=== PATIENT | female | born 1940 | race Caucasian/White ===

== ENCOUNTER 2016-09-17 19:19 | Outpatient (CLI) | payer OTHER | END 2016-09-17 19:20 | disposition critical access hospital (66) | LOC: EMS 19:19 | PROVIDERS: ATTEND Surgery | DX: M25.511 Pain in right shoulder (principal); W01.198A Fall on same level from slipping, tripping and stumbling with subsequent striking against other object, initial encounter; Y93.K1 Activity, walking an animal; Y92.017 Garden or yard in single-family (private) house as the place of occurrence of the external cause | CPT/HCPCS: A0425; A0427 ==

== ENCOUNTER 2016-09-17 19:56 | Emergency (ER) | payer OTHER ==
[2016-09-17] MEDS ORDERED: PROMETHAZINE INJ 12.5 MG in SODIUM CHLORIDE 0.9% 50 ML IV STA (20:16)
[2016-09-17] MEDS ORDERED: PROMETHAZINE 25 MG/1 ML VIAL ONE (20:18)
--- NOTE | 2016-09-17 20:31 | ED Physician Documentation ---
PD HPI UPPER EXT INJURY - Stated complaint Stated Complaint: FALL/SHOULDER INJ - Chief complaint Chief Complaint: Ext Problem - History obtained from History obtained from: Patient, EMS - History of Present Illness Location: Right, Shoulder Type of injury: Fall Where injury occurred: Home Timing - onset: How many hours ago (3) Timing - duration: Hours (2) Timing - details: Abrupt onset Pain level max: 9 Pain level now: 9 Improved by: Rest Worsened by: Moving Associated symptoms: No: Weakness, Numbness, Tingling, Swelling Contributing factors: No: Anticoagulated, Prior ortho surgery Similar symptoms before: Has not had sx before Recently seen: Not recently seen - Additonal information Additional information: Patient is a 76-year-old female who presents to the emergency department after falling down at home and injuring her right shoulder. Received 150 mcg of fentanyl with EMS. This caused her to be nauseated and vomit. Still feeling nauseated. Patient did not strike her head. Has no neck pain. Review of Systems Ten Systems: 10 systems reviewed and negative Constitutional: denies: Fever, Chills Eyes: denies: Decreased vision Ears: denies: Ear pain Nose: denies: Rhinorrhea / runny nose, Congestion Cardiac: denies: Chest pain / pressure Respiratory: denies: Cough GI: reports: Nausea, Vomiting. denies: Abdominal Pain, Diarrhea : denies: Dysuria, Frequency, Hesitancy Skin: denies: Rash Musculoskeletal: denies: Neck pain Neurologic: denies: Focal weakness, Numbness, Confused, Altered mental status, Headache PD PAST MEDICAL HISTORY - Past Medical History Past Medical History: Yes Cardiovascular: Congestive heart failure Respiratory: None Neuro: None Endocrine/Autoimmune: Other GI: None VENEER CLIPPER: None : None HEENT: None Psych: None Musculoskeletal: None Derm: None Other Past Medical History: hypothyroid - Past Surgical History Past Surgical History: Yes Ortho: Hip replacement - Present Medications Home Medications: Ambulatory Orders Medication Instructions Recorded Confirmed Doxycycline Monohydrate 100 mg PO DAILY 09/17/16 09/17/16 Furosemide 20 mg PO DAILY 09/17/16 09/17/16 Hydrocodone/Acetaminophen 1 - 2 each PO Q6H PRN #14 tablet 09/17/16 [Hydrocodon-Acetaminophen 5-325] Levothyroxine [Synthroid] 88 mcg PO QDAC 09/17/16 09/17/16 Metoprolol Tartrate 50 mg PO DAILY 09/17/16 09/17/16 Ondansetron Odt [Zofran] 4 mg TL Q6H PRN #10 tablet 09/17/16 Potassium Chloride 20 meq PO DAILY 09/17/16 09/17/16 Simvastatin 40 mg PO DAILY 09/17/16 09/17/16 traZODone [Desyrel] 50 mg PO ONCE 09/17/16 09/17/16 - Allergies Allergies/Adverse Reactions: Allergies Allergy/AdvReac Type Severity Reaction Status Date / Time iodine Allergy Unknown Verified 09/17/16 20:02 - Social History Does the pt smoke?: No Smoking Status: Never smoker Does the pt drink ETOH?: No Does the pt have substance abuse?: No - Immunizations Immunizations are current?: Yes - POLST Patient has POLST: Yes PD ED PE NORMAL - Vitals Vital signs reviewed: Yes - General General: Alert and oriented X 3, Well developed/nourished, Other (Appears in pain) - HEENT HEENT: Atraumatic, PERRL, Moist mucous membranes - Neck Neck: Supple, no meningeal sign, No bony TTP - Cardiac Cardiac: RRR - Respiratory Respiratory: No respiratory distress, Clear bilaterally - Abdomen Abdomen: Soft, Non tender, Non distended - Back Back: No spinal TTP - Derm Derm: Warm and dry - Extremities Extremities: Other (Tender to palpation over the right proximal humerus and humeral head. No gross deformity. Neurovascularly intact including the axillary nerve) - Neuro Neuro: Alert and oriented X 3 - Psych Psych: Normal mood, Normal affect Results - Vitals Vitals: Vital Signs - 24 hr 09/17/16 09/17/16 09/17/16 19:57 20:32 21:16 Temperature 36.0 C L Heart Rate 72 56 L 70 Respiratory 18 14 14 Rate Blood Pressure 155/55 H 126/80 144/59 H O2 Saturation 99 100 100 Oxygen O2 Source Nasal cannula - Rads (name of study) Right shoulder x-ray Radiology: Prelim report reviewed, EMP read contemporaneously, See rad report ( Mildly displaced three-part humeral head and neck fracture) Right humerus x-ray Radiology: Prelim report reviewed, EMP read contemporaneously, See rad report ( Mildly displaced three-part humeral head and neck fracture) PD MEDICAL DECISION MAKING - ED course Complexity details: reviewed results, re-evaluated patient, considered differential, d/w patient, d/w family ED course: Patient is a 76-year-old female who presents to the emergency department after a trip and fall at home today. She landed on the right shoulder and is found to have a mildly displaced 3 part humeral head and neck fracture. Placed in a sling and swath for comfort. Pain well controlled. Will prescribe pain medication for home and have her follow-up with orthopedics for further evaluation and care. Patient and family counseled regarding signs and symptoms for which I believe and urgent re-evaluation would be necessary. Patient with good understanding of and agreement to plan and is comfortable going home at this time This document was made in part using voice recognition software. While efforts are made to proofread this document, sound alike and grammatical errors may occur. Departure - Departure Disposition: 01 Home, Self Care Clinical Impression: Humeral head fracture Qualifiers: Encounter type: initial encounter Fracture type: closed Laterality: right Qualified Code(s): S42.291A - Other displaced fracture of upper end of right humerus, initial encounter for closed fracture Condition: Good Instructions: ED Fx Upper Ext Follow-Up: [facility] [Provider Group] - Within 1 week (call for an appointment) Prescriptions: Hydrocodone/Acetaminophen [Hydrocodon-Acetaminophen 5-325] 1 - 2 each PO Q6H PRN #14 tablet PRN Reason: pain Ondansetron Odt [Zofran] 4 mg TL Q6H PRN #10 tablet PRN Reason: Nausea / Vomiting Comments: Return if you worsen. Stay in the sling until released by orthopedics. Do not drink alcohol or drive while on narcotic pain medicine. Note that many narcotic pain relievers also contain tylenol/acetaminophen. Please ensure that your total dose of acetaminophen from all sources does not exceed 3 grams (3000mg) per day. You may constipated on this medication, take a stool softener such as "Colace" twice a day while you are on it. Also recommend a gkuh-erj-usxirxp laxative such as senna or MiraLAX any day that you do not have a bowel movement. If you received narcotic pain medication in the emergency department, do not drive or operate machinery for the next 24 hours. Your blood pressure was elevated today on check in to the emergency department. This does not mean that you have hypertension, it is a common phenomenon to check into the emergency department and have elevated blood pressure. I recommend that you see your primary care physician within the week to have it rechecked when you're feeling better.
[2016-09-17] MEDS ORDERED: KETOROLAC 60 MG/2 ML VIAL IVP STA (21:10)
[2016-09-17] MEDS ORDERED: KETOROLAC 30 MG/ML VIAL ONE (21:12)
[2016-09-17] MEDS ORDERED: HYDROcod/ACETAM 5/325 MG TABLET PO STA (21:21)
[2016-09-17] MEDS ORDERED: HYDROcod/ACET 5/325 Prepack 6 PO ONE ×2 (21:21→21:50)
--- NOTE | 2016-09-17 21:25 | XRAY Preliminary Report ---
Exam: XR Shoulder 3 View RT IMPRESSION: 3 part humeral head and neck fracture. [facility] SITE ID: [id number]
--- NOTE | 2016-09-17 21:26 | XRAY Report ---
EXAM: RIGHT SHOULDER RADIOGRAPHY EXAM DATE: 09/17/2016 09:08 PM. CLINICAL HISTORY: Fall, R shoulder, arm injury. COMPARISON: None. TECHNIQUE: 3 views. FINDINGS: Bones: There is a transverse fracture through the humeral neck with a vertical, slightly comminuted c omponent involving the base of the greater tuberosity. Greater tuberosity fragments are displaced up to 4 mm. Joints: Pseudosubluxation likely secondary to hemarthrosis. Soft tissues: The visualized hemithorax is unremarkable. No soft tissue swelling. IMPRESSION: 3 part humeral head and neck fracture. [facility] Referring Provider Line: [phone] SITE ID: [id number]
--- NOTE | 2016-09-17 21:31 | XRAY Preliminary Report ---
Exam: XR Humerus RT IMPRESSION: Mildly displaced 3 part humeral head and neck fracture. [facility] SITE ID: [id number]
--- NOTE | 2016-09-17 21:34 | XRAY Report ---
EXAM: RIGHT HUMERUS RADIOGRAPHY EXAM DATE: 09/17/2016 09:08 PM. CLINICAL HISTORY: Fall, R shoulder, arm injury. COMPARISON: None. TECHNIQUE: 2 views. FINDINGS: Bones: Transverse humeral neck fracture. There is also a mildly comminuted and displaced vertical fra cture component through the greater tuberosity. The humeral shaft is intact. Joints: Right shoulder pseudosubluxation likely secondary to hemarthrosis. The elbow joint is unremar kable. Soft Tissues: Normal. No soft tissue swelling. IMPRESSION: Mildly displaced 3 part humeral head and neck fracture. [facility] Referring Provider Line: [phone] SITE ID: [id number]
[2016-09-17] MEDS ORDERED: diazePAM INJ 5 MG/ML SYRINGE IVP STA (21:46)
[2016-09-17] MEDS ORDERED: diazePAM INJ 5 MG/ML SYRINGE ONE (21:49)
[2016-09-17] MEDS ORDERED: HYDROcod/ACETAM 5/325 MG TABLET ONE (21:50)
[2016-09-17 22:21] VITALS: BP 122/61
== END 2016-09-17 22:21 | disposition home or self-care (01) ==
LOC: EDBD → ED 19:56
DX: S42.251A Displaced fracture of greater tuberosity of right humerus, initial encounter for closed fracture (principal); S42.291A Other displaced fracture of upper end of right humerus, initial encounter for closed fracture; W01.0XXA Fall on same level from slipping, tripping and stumbling without subsequent striking against object, initial encounter; Y92.009 Unspecified place in unspecified non-institutional (private) residence as the place of occurrence of the external cause; R03.0 Elevated blood-pressure reading, without diagnosis of hypertension
CPT/HCPCS: 73030; 73060; 96374; 96375; 99284; A9270

== ENCOUNTER 2023-06-02 11:05 | Outpatient (CLI) | payer MEDICARE ==
[2023-06-02 11:38] LABS: CALCIUM 10.1 mg/dL (8.5-10.3); CREATININE 0.9 mg/dL (0.6-1.3); POTASSIUM 4.2 mmol/L (3.5-4.5)
== END 2023-06-02 11:06 | disposition home or self-care (01) ==
LOC: LAB 11:05
PROVIDERS: ATTEND Hospitalist
DX: I50.32 Chronic diastolic (congestive) heart failure (principal)
CPT/HCPCS: 36415; 80048

== ENCOUNTER 2024-02-19 04:08 | Observation (INO) ==
[2024-02-19 04:17] LABS: BASOPHILS # (AUTO) 0.1 10^3/uL (0.0-0.1); BASOPHILS % (AUTO) 0.9 %; EOSINOPHILS # (AUTO) 0.2 10^3/uL (0.0-0.7); HCT - HEMATOCRIT 41.3 % (37.0-47.0); LYMPHOCYTES # (AUTO) 2.1 10^3/uL (1.5-3.5); LYMPHOCYTES % (AUTO) 25.8 %; MEAN CORPUSCULAR HEMOGLOBIN 30.5 pg (27.0-31.0); MEAN CORPUSCULAR HGB CONC 31.5 g/dL (32.0-36.0); MEAN CORPUSCULAR VOLUME 96.9 fL (81.0-99.0); MEAN PLATELET VOLUME 9.5 fL (7.9-10.8); MONOCYTES # (AUTO) 0.8 10^3/uL (0.0-1.0); MONOCYTES % (AUTO) 10.1 %; NEUTROPHILS # (AUTO) 4.9 10^3/uL (1.5-6.6); NEUTROPHILS % (AUTO) 61.1 %; PLT - PLATELET COUNT 307 10^3/uL (130-450); RED BLOOD COUNT 4.26 10^6/uL (4.20-5.40); RED CELL DISTRIBUTION WIDTH 13.2 % (12.0-15.0); WHITE BLOOD COUNT 8.1 x10^3/uL (4.8-10.8)
--- NOTE | 2024-02-19 04:25 | ED Physician Documentation ---
History of Present Illness Stated complaint Stated Complaint: POSS CVA Chief complaint Chief Complaint: Neuro Additonal information Additional information: 83yF presents with concern for stroke like symtpoms tonight with LSN 9pm. patient may have woken up with symptoms per family but she states she developed imbalance and difficulty speaking around 3am. ems reports speech difficulties improving en route. Meds/Allgy Home Medications Ambulatory Orders Medication Instructions Recorded Confirmed doxycycline monohydrate 100 mg 100 mg PO DAILY 09/17/16 09/17/16 capsule furosemide 20 mg tablet 20 mg PO DAILY 09/17/16 09/17/16 hydrocodone 5 mg-acetaminophen 325 1 - 2 ea PO Q6H PRN pain #14 tabs 09/17/16 mg tablet levothyroxine 88 mcg tablet 88 mcg PO QDAC 09/17/16 09/17/16 metoprolol tartrate 50 mg tablet 50 mg PO DAILY 09/17/16 09/17/16 ondansetron 4 mg disintegrating 4 mg translingual Q6H PRN Nausea / 09/17/16 tablet Vomiting #10 tabs potassium chloride 20 mEq 20 meq PO DAILY 09/17/16 09/17/16 tablet,extended release simvastatin 40 mg tablet 40 mg PO DAILY 09/17/16 09/17/16 trazodone 50 mg tablet 50 mg PO ONCE 09/17/16 09/17/16 Allergies Allergies Allergy/AdvReac Type Severity Reaction Status Date / Time iodine Allergy Unknown Verified 09/17/16 20:02 [facility] Medical History Medical History (Updated 02/19/24 @ 04:31 by Connie Vega RN) Hypothyroid Hypertension Social History Social History Smoking Status: Never smoker Relationship: Do you feel safe in your home environment?: Yes Suffered physical, verbal, emotional, or financial abuse?: No History of Abuse: No POLST Patient has POLST: Yes Exam Constitutional normal general appearance and no apparent distress HENMT normocephalic and head/scalp atraumatic Eyes PERRL Neck/C-Spine visual inspection normal Lymph no lymphadenopathy noted Chest inspection of chest normal and palpation of chest normal Respiratory breath sounds equal bilaterally, normal respiratory effort and clear to auscultation bilaterally Cardiovascular normal heart rate noted and regular rhythm noted Neurology coil winder hand II-XII intact and GCS 15 NIHSS 2 (1- dysarthria, 1-aphasia), rapidly improving Results Vitals Vitals: Vital Signs - 24 hr 02/19/24 04:25 02/19/24 04:47 02/19/24 05:06 Temperature 36.4 C L Temperature Source Temporal Artery Scan Pulse Rate 69 69 68 Respiratory Rate 16 17 Blood Pressure 140/66 H 139/67 H O2 Saturation 97 98 O2 Source Room air Room air Room air Pain Intensity 0 0 0 Oxygen O2 Source Room air EKG (time done) 0432: EKG releavant findings:: EKG personally interpreted by author of this note. Relevant findings are: Rate: Rate (enter#) (60) Rhythm: NSR [place]: Normal Intervals: Normal [place] QRS: QRS normal Ischemia: Normal ST segments Labs Labs: Laboratory Tests 02/19/24 04:05 WBC 8.1 RBC 4.26 Hgb 13.0 Hct 41.3 MCV 96.9 MCH 30.5 MCHC 31.5 L RDW 13.2 Plt Count 307 MPV 9.5 Neut # (Auto) 4.9 Lymph # (Auto) 2.1 [place] # (Auto) 0.8 Eos # (Auto) 0.2 Baso # (Auto) 0.1 Absolute Nucleated RBC 0.00 Nucleated RBC % 0.0 Sodium 135 Potassium 3.8 Chloride 101 Carbon Dioxide 27 Anion Gap 7.0 BUN 29 H Creatinine 0.9 Estimated GFR (MDRD) 60 L Glucose 120 H Calcium 9.6 Total Bilirubin 0.6 AST 10 ALT 10 Alkaline Phosphatase 72 Total Protein 7.3 Albumin 3.9 Globulin 3.4 Albumin/Globulin Ratio 1.1 Lipase 11 Ethyl Alcohol < 10.0 PD Medical Decision Making ED course ED course: Patient presented as pre-notification with ems with concern for CVA. stroke code activated at time of prenotification. Per EMS, she was last seen normal at 9pm yesterday. she called ems with difficulty speaking and balance issues. stroke protocol enacted on arrival. 4:20am - patient refused CT with IV contrast, stating she has anaphylactic reaction (neck swelling). CT of head without contrast was completed. patient is having word finding difficulty but able to communicate and AOX4. no other objective deficits noted. NIHSS 2 (one point each for aphasia and dysarthria). Speech seems to have improved after CT scan. Patient is not a candidate for tPA given she is likely outside the window given LSN >4.5 hours. In addition to this, her symptoms are mild and appear to be improving. EMS reported waxing and waning speech difficulties en route. 4:40pm - ct head noncontrast negative. discussed option of doing ct with contrast to have more complete initial workup and monitoring for allergic reaction. patient is unsure. is still en route, driving and unreachable so no ability to consult with family for collateral info/ help with treatment decision making as of yet. 5:10am - patient's speech has improved and she is requesting evaluation for tPA. She states she woke up and went to the bathroom and felt normal but then on the way to the kitchen developed sense of imbalance and then subsequently had difficulty speaking. she does not believe she woke with symptoms but rather developed them immediately after waking. she is unable to tell me what time this occurred. no collateral information available. staffing coordinator contacted and he is unable to provide timing. he is on his way to the hospital. telestroke neurologist consulted. Patient is unsure about whether she will consent to CT with contrast if we premedicate with benadryl, given her prior allergic reaction in the neck. 5:23am- stroke neurologist Dr. Chen talked with me and will speak with the patient over video monitor. 5:30am - discussed again with patient option of IV benadryl to premedicate prior to CT and she agreed. 5:45am - Dr. Chen recommends against tPA given low NIHSS, improving symptoms, age >80, and unclear time of onset. d/w patient who is agreeable to holding off on TNK given risk of intracranial bleeding. 6:20am- no elida occlusion per Dr. Chen. has finally arrived and he states that around 2am the patient was talking to him normally and then went back to bed. However patient insists she did not talk to him overnight until she was "having problems". Around 2:30 or 3:15 he says she made cocoa and wasn't speaking normally. Patient now believes it was around 3:30am. concern about reliability of both historians and conflicting timelines. 6:30am - radiology confirms no large vessel occlusion on CTA. Dr. Chen recommends we transfer patient for stroke workup. [facility] is working on it and has called 3 hospitals with long waitlists. 7am - endorsed to incoming daytime ED MD at 7am shift change. Discharge Plan Discharge Prescriptions: No Action trazodone 50 MG tablet 50 mg PO ONCE simvastatin 40 MG tablet 40 mg PO DAILY levothyroxine 88 MCG tablet 88 mcg PO QDAC doxycycline monohydrate 100 MG capsule 100 mg PO DAILY metoprolol tartrate 50 MG tablet 50 mg PO DAILY furosemide 20 MG tablet 20 mg PO DAILY potassium chloride 20 MEQ tablet extended release 20 meq PO DAILY hydrocodone-acetaminophen 1 EACH tablet 1 - 2 ea PO Q6H PRN (Reason: pain) Qty: 14 0RF ondansetron 4 MG tablet,disintegrating 4 mg translingual Q6H PRN (Reason: Nausea / Vomiting) Qty: 10 0RF Print Language: Armenian Stand Alone Forms: PCP List
[2024-02-19 04:34] LABS: ALBUMIN 3.9 g/dL (3.2-5.5); ALBUMIN/GLOBULIN RATIO 1.1 (1.0-2.2); ALKALINE PHOSPHATASE 72 IU/L (42-121); ALT ALANINE AMINOTRANSFERASE 10 IU/L (10-60); AST ASPARTATE AMINOTRANSFERASE 10 IU/L (10-42); BILIRUBIN,TOTAL 0.6 mg/dL (0.2-1.0); BUN - BLOOD UREA NITROGEN 29 mg/dL (6-20); CALCIUM 9.6 mg/dL (8.5-10.3); CARBON DIOXIDE - CO2 27 mmol/L (21-32); CHLORIDE 101 mmol/L (101-111); CREATININE 0.9 mg/dL (0.6-1.3); ETOH - ETHANOL < 10.0 mg/dL; GFR - MDRD 60 (>89); GLUCOSE 120 mg/dL (74-104); LIPASE 11 U/L (11-82); POTASSIUM 3.8 mmol/L (3.5-4.5); SODIUM 135 mmol/L (135-145); TOTAL PROTEIN 7.3 g/dL (6.4-8.9)
[2024-02-19] MEDS: ONDANSETRON 4 MG/2 ML VIAL IVP STA (04:58)
[2024-02-19] MEDS: diphenhydrAMINE INJ 50 MG/ML VIAL IVP STA (05:50)
[2024-02-19] MEDS ORDERED: iohexoL-300 100 ML VIAL ONE (06:08)
[2024-02-19] MEDS: methylPREDNISolone SUCCINATE 125 MG/2 ML VIAL IVP STA (06:14)
[2024-02-19] MEDS: CLOPIDOGREL 75 MG TABLET PO STA (06:14)
[2024-02-19] MEDS: ASPIRIN 325 MG TABLET PO STA (06:14)
[2024-02-19] MEDS: iohexoL-300 100 ML VIAL IVP ONE (06:20)
[2024-02-19 07:39] LABS: BILIRUBIN,URINE NEGATIVE (NEGATIVE); GLUCOSE, URINE (UA) NEGATIVE (NEGATIVE); KETONES,URINE (UA) NEGATIVE (NEGATIVE); LEUKOCYTE ESTERASE, URINE SMALL (NEGATIVE); NITRITE,URINE NEGATIVE (NEGATIVE); OCCULT BLOOD,URINE TRACE-INTA (NEGATIVE); PROTEIN,URINE NEGATIVE (NEGATIVE); UROBILINOGEN,URINE 0.2 (NORMAL) E.U./dL (NORMAL)
[2024-02-19 07:41] LABS: CLARITY,URINE CLEAR (CLEAR)
[2024-02-19 07:47] LABS: BACTERIA,URINE Rare /HPF (None Seen); RBC,URINE 0-5 /HPF (0-5); SQUAMOUS EPITHELIAL CELL,UR FEW Squamous (<= Few)
[2024-02-19 07:49] LABS: AMPHETAMINE SCREEN,URINE NEGATIVE (NEGATIVE); BARBITURATE SCREEN,UR NEGATIVE (NEGATIVE); BENZODIAZEPINES SCREEN, URINE NEGATIVE (NEGATIVE); BUPRENORPHINE SCREEN, URINE NEGATIVE (NEGATIVE); COCAINE SCREEN URINE NEGATIVE (NEGATIVE); METHADONE SCREEN, URINE NEGATIVE (NEGATIVE); METHAMPHETAMINES SCREEN, URINE NEGATIVE (NEGATIVE); OPIATE SCREEN, URINE NEGATIVE (NEGATIVE); OXYCODONE SCREEN, URINE NEGATIVE (NEGATIVE); THC CANNABINOID SCREEN, URINE NEGATIVE (NEGATIVE); TRICYCLIC ANTIDEPRESSANT,URINE NEGATIVE (NEGATIVE)
--- NOTE | 2024-02-19 08:23 | HISTORY & PHYSICAL EXAMINATION ---
Chief Complaint Chief Complaint Chief Complaint: Difficulty speaking, difficulty with balance History of Present Illness Admitted From Admitted From:: Home History Obtained From Records Reviewed: Yes History obtained from: Patient's at bedside Exam Limitations: None History of Present Illness HPI Comment/Other: Patient is a 83-year-old female with a history of hypothyroidism, hypertension who presents for difficulty speaking, and difficulty finding balance. Around 3 AM today, patient woke up and was making some hot cocoa in the kitchen. She then noticed that she was having difficulty getting out words. She also noticed that her balance was off. She was having difficulty picking up her cup, and putting in the microwave. She woke up her who called 911 immediately. On admission, around 4:20 AM, she arrived to the ED. Code stroke was activated. Last known normal was yesterday evening around 9 PM. At 4:20 AM, CTA was refused as patient has a allergy to contrast. However, CT scan without contrast was done which was negative for any bleed or large stroke. Patient was not a candidate for tPA as last known normal was more than 4.5 hours from presentation. At around 5:10 AM, telestroke neurologist was consulted. She recommended against tPA given low NIHSS, improving symptoms, age greater than 80 and unclear time of onset. CTA was also done, which showed no elida occlusion per the neurologist. Plan was for admission for MRI. We do not have echo at this time, so she will require that in the outpatient setting. She is no history of any previous strokes, MIs. She does see a manager plant, but was told that she has no arrhythmias or heart failure. At this time, she denies any other weaknesses or changes in sensation. She has no facial droop, no difficulty with her vision. She is still having some difficulty with her expression of words. She is mixing up words i.e. kitchen and kitten. She does feel like it is improving. Meds/Allgy Home Medications Ambulatory Orders Medication Instructions Recorded Confirmed levothyroxine 88 mcg tablet 88 mcg PO 0200 09/17/16 02/19/24 simvastatin 40 mg tablet 40 mg PO QPM 09/17/16 02/19/24 amlodipine 5 mg tablet 5 mg PO QPM 02/19/24 02/19/24 latanoprost 0.005 % eye drops 1 drp ophthalmic (eye) QPM 02/19/24 02/19/24 losartan 50 mg tablet 100 mg PO BID 02/19/24 02/19/24 metoprolol succinate 50 mg 100 mg PO QPM 02/19/24 02/19/24 tablet,extended release 24 hr torsemide 5 mg tablet 5 mg PO DAILY 02/19/24 02/19/24 Allergies Allergies Allergy/AdvReac Type Severity Reaction Status Date / Time iodine Allergy Unknown Verified 09/17/16 20:02 [facility] Medical History Medical History Hypothyroid Hypertension Social History Social History Smoking Status: Never smoker Do you vape?: No Relationship: Level: Independent Home Mobility Equipment: Cane Do you feel safe in your home environment?: Yes Suffered physical, verbal, emotional, or financial abuse?: No History of Abuse: No POLST Patient has POLST: Yes Review of Systems Constitutional Reports: Weakness; Denies: Fatigue, Fever, Chills or Malaise Eyes Denies: Pain, Irritation, Amaurosis or Blurry vision Ears, nose, mouth, and throat Denies: Ear pain, Ear discharge, Hearing loss, Hearing aids, Tinnitus, Vertigo, Neck pain or Throat swelling Cardiovascular Reports: swelling of feet/ankles (chronic, on Lasix at home); Denies: Irregular heart rate, chest pain, palpitations, edema or shortness of breath with exertion Respiratory Denies: Shortness of breath, Cough, Sputum production, Change in phlegm color, Wheezing or Apnea Gastrointestinal Denies: Abdominal pain, Abdominal distention, Nausea, Vomiting, Poor appetite, Bile emesis, Diarrhea or Constipation Genitourinary Denies: Painful urination, Urinary frequency, Urinary urgency or Nocturia Musculoskeletal Denies: Back pain, Neck pain, Extremity pain, Extremity swelling or Muscle pain Integumentary/Breast Denies: Rash, Itching, Dryness or Skin tenderness Neurological Reports: General weakness, Abnormal gait, Lack of coordination and Difficulty communicating thoughts; Denies: Headache, Focal weakness, Weakness in extremities, Numbness in extremities, Dizziness, Vertigo or Confusion Psychiatric Denies: Depression, Anxiety, Mood swings, Panic attacks or Change in sleep pattern Endocrine Denies: Excessive urination, Excessive thirst or Fatigue Hematologic/Lymphatic Denies: Anemia, Easy bruising or Petechiae Allergic/Immunologic Denies: Hives, Throat swelling, Tongue swelling or Wheezing Prior Level of Functionality: Independent of activities of daily living, lived with . Occasional use of cane. Exam Constitutional normal general appearance, no apparent distress and abnormal body habitus (overweight) [facility] normocephalic, head/scalp atraumatic, external ears normal and EACs normal Eyes EOMs intact bilaterally, conjunctivae abnormal, scleral icterus noted, papilledema noted, visual magaña abnormal by confrontation and fundi abnormal Neck/C-Spine visual inspection normal, trachea midline, cervical spine tenderness noted and abnormal cervical ROM noted Lymph no lymphadenopathy noted Chest inspection of chest normal Respiratory breath sounds equal bilaterally, normal respiratory effort, clear to auscultation bilaterally, no wheezes and no rales Cardiovascular normal heart rate noted, regular rhythm noted, no gallop, no rub and no murmur Gastrointestinal abdomen normal to inspection, nontender to palpation, nondistended, normoactive bowel sounds and no hepatosplenomegaly Genitourinary no CVA tenderness Back/Pelvis spine normal to inspection, no thoracic spine tenderness and no lumbar spine tenderness Extremities normal to inspection, normal to palpation and full ROM Neurology no movement abnormality noted, no focal motor deficit noted (5/5 strength to flexion and extension in all extremities ), no sensory deficits noted and speech abnormality noted (expressive aphasia) Psychiatry mental status grossly normal, oriented x3, thought process normal, cooperative and affect normal Skin skin color normal and no rash Conclusion/Plan Problem List (1) Expressive aphasia: Plan: Patient presented with new onset expressive aphasia, as well as balance issues since approximately 3 AM overnight. Last known normal was 9 PM the night before. Teleneurologist consulted: Outside of the window for tPA, not given. Received high dose aspirin and Plavix. CT head, CTA done with no large vessel occlusion or any hemorrhagic bleed or stroke noted. MRI completed, no acute CVA noted. Will require ECHO to be done in the outpatient setting as we do not have ECHO here until Wednesday. This was relayed to the patient. She has a manager plant that she sees regularly who she thinks she can set this up with. Will continue telemetry monitoring for 24 hours here to assess for any arrhythmias. Continue permissive hypertension, 220/120, for the next 24 hours. Continue neurochecks every 4 hours to assess for any evolving changes. Continue aspirin 81 mg daily, high intensity statin. Lipid panel, A1c ordered, pending. ABCD2 score of 4, high risk TIA. Will prescribe Plavix for 21 days. (2) Urinary tract infection: Plan: Patient with leukocyte esterase, some bacteria, and increased frequency. Complete Macrobid for 5 days. Qualifiers: Urinary tract infection type: acute cystitis Hematuria presence: w ithout hematuria Qualified Code(s): N30.00 - Acute cystitis without hematuria (3) Hypothyroid: Plan: Continue home Synthroid. Qualifiers: Hypothyroidism type: unspecified Qualified Code(s): E03.9 - Hypothyroidism, unspecified (4) Hypertension: Plan: Hold Lasix and metoprolol to allow for permissive hypertension for 24 hours. Qualifiers: Hypertension type: unspecified Qualified Code(s): I10 - Essential (primary) hypertension Lab Results Lab results reviewed: Yes 02/19/24 04:05 02/19/24 04:05 Diagnostic Imaging Results Diagnostic Imaging Results: positive Final report reviewed Core Measures Anticipated LOS I expect patient to be DC'd or transferred within 96 hours.: Yes DVT/VTE - Prophylaxis VTE/DVT Device ordered at admit?: Yes VTE/DVT Prophylaxis med ordered at admit?: No Not Ordered - Medical Reason: Contraindicated (await MRI to see if bleed) Stroke - Rehab Assessment Rehab services assessment to be ordered?: Yes AMI - Statin at Admit Aspirin Prescribed on Admit: Yes
[2024-02-19] MEDS ORDERED: HYDROcod/ACETAM 5/325 MG TABLET PO PRN (09:00)
[2024-02-19 09:02] LABS: CHOLESTEROL 161 mg/dL; HDL CHOLESTEROL 54 mg/dL
[2024-02-19] MEDS ORDERED: SODIUM CHLORIDE FLUSH 0.9% 10 ML SYRINGE IVP PRN (09:02)
[2024-02-19 09:14] LABS: LDL CHOLESTEROL,CALCULATED 91 mg/dL; LDL/HDL RATIO 1.7 (<4.4); TRIGLYCERIDES 78 mg/dL; VLDL CHOLESTEROL 16 mg/dL
[2024-02-19] MEDS: LEVOTHYROXINE 88 MCG TABLET PO SCH (09:24)
--- NOTE | 2024-02-19 09:42 | MRI Report ---
PROCEDURE: MRI Brain WO INDICATIONS: aphasia TECHNIQUE: Noncontrast axial T1 spin echo, axial T2 fast spin echo, sagittal and axial FLAIR, coronal T2 fast sp in echo, axial gradient echo, axial diffusion and ADC through the brain. COMPARISON: Correlation is made with the accompanying CT examinations. FINDINGS: Image quality: Excellent. CSF Spaces: Basal cisterns are patent. No extra-axial fluid collections. Ventricles are normal in size and shape. Brain: No intracranial masses or hemorrhage. Leblanc/white matter interface is normal. Brainstem appe ars normal. Diffusion-weighted images demonstrate no acute ischemic insult. No chronic ischemic ins ults. Normal intravascular flow voids are present. Age-appropriate brain parenchymal volume loss an d chronic small vessel ischemic change can be seen. Skull and face: Calvarium has normal marrow signal. Orbits appear normal. A left lens replacement can be seen. Sinuses: Sinuses and mastoids are clear. IMPRESSION: No findings of acute or subacute infarction are seen. Age-appropriate brain parenchymal volume loss and chronic small vessel ischemic change can be seen. Reviewed by: Faisal Pagan MD on 02/19/2024 8:40 AM [facility] Approved by: Faisal Pagan MD on 02/19/2024 8:40 AM [facility] Station ID: [id number]
--- NOTE | 2024-02-19 09:50 | CT Report ---
PROCEDURE: CT Head W/O Stroke Protocol INDICATIONS: stroke protocol TECHNIQUE: Noncontrast 4.5 mm thick angled axial sections acquired from the foramen magnum to the vertex, with c oronal reformats. For radiation dose reduction, the following was used: automated exposure control, adjustment of mA and/or kV according to patient size. COMPARISON: Correlation is made with the accompanying imaging. FINDINGS: Image quality: Excellent. CSF spaces: Basal cisterns are patent. No extra-axial fluid collections. Ventricles are normal in size and shape. Brain: No midline shift. No intracranial masses or hemorrhage. Leblanc-white matter interface is norm al. Age-appropriate brain parenchymal volume loss and chronic small vessel ischemic change can be se en. Skull and face: Calvarium and visualized facial bones are intact, without suspicious lesions. Sinuses: Visualized sinuses and mastoids are clear. IMPRESSION: No intracranial hemorrhage is seen. No significant intracranial abnormality is seen. Note: No significant discrepancy from the preliminary report. This study fulfills neurological imaging criteria for inclusion or exclusion of acute stroke therapie s based on available published neurological imaging guidelines. Reviewed by: Faisal Pagan MD on 02/19/2024 8:49 AM [facility] Approved by: Faisal Pagan MD on 02/19/2024 8:49 AM [facility] Station ID: [id number]
--- NOTE | 2024-02-19 09:50 | CT Report ---
PROCEDURE: CT Angio Head/Neck INDICATIONS: stroke protocol TECHNIQUE: After the administration of intravenous contrast, 1 mm thick sections acquired from the aortic arch t hrough the [place] of [place]. 3-dimensional [id number]-[id number] (MIP) and/or volume renderin g reformats were acquired of the central intracranial vasculature and neck separately. For radiation dose reduction, the following was used: automated exposure control, adjustment of mA and/or kV acco rding to patient size. CONTRAST: 100 ML OMNI 300 COMPARISON: Correlation is made with the accompanying imaging. FINDINGS: Image quality: Diagnostic. HEAD CT: CSF Spaces: Basal cisterns are patent. No extra-axial fluid collections. Ventricles are normal in size and shape. Brain: No significant abnormality is seen for scanning technique. Skull and face: Calvarium and visualized facial bones appear intact, without suspicious lesions. Sinuses: Visualized sinuses and mastoids are clear. HEAD CT ANGIOGRAPHY: Anterior circulation: Intracranial internal carotid arteries are normal in size and flow. The flow within the paired anterior cerebral arteries is normal and symmetric. The flow within the middle cer ebral arteries is normal and symmetric. The anterior communicating artery is seen. No aneurysms are seen. Posterior circulation: The left V4 segment is within normal limits. The right V4 segment largely term inates in the right posterior inferior cerebellar artery. There is a normal appearing basilar artery. The flow within the posterior cerebral arteries is normal and symmetric. No stenoses, occlusions, or aneurysms. NECK CT ANGIOGRAPHY: Carotid system: The great vessels demonstrate a conventional anatomy as they arise from the aortic a rch. The origins of the common carotid arteries appear patent. The common carotid arteries demonstr ate normal caliber and courses. The bifurcation regions are both widely patent. The internal caroti d arteries demonstrate normal calibers and courses. Posterior circulation: The origins of the vertebral arteries both appear widely patent. The more rice perior extracranial portions of both vertebral arteries also demonstrate normal courses and calibers. The left vertebral artery is dominant to the right. Soft tissues: Visualized neck soft tissues demonstrate no suspicious abnormalities. Bones: No suspicious bony lesions. Visualized cervical spine appears normally aligned. IMPRESSION: No significant intracranial arterial abnormality is seen. No significant abnormality is seen within the arteries of the neck. Note: No significant discrepancy from the preliminary report. The estimate of stenosis included in the report of the imaging study was calculated using the NASCET method Reviewed by: Faisal Pagan MD on 02/19/2024 8:49 AM [facility] Approved by: Faisal Pagan MD on 02/19/2024 8:49 AM [facility] Station ID: [id number]
--- NOTE | 2024-02-19 09:51 | XRAY Report ---
PROCEDURE: XR Chest 1V INDICATIONS: Chest Pain TECHNIQUE: One view of the chest was acquired. COMPARISON: Correlation is made with the accompanying imaging. FINDINGS: Surgical changes and devices: None. Lungs and pleura: An incomplete inspiratory result is noted, with low lung volumes and crowding of t he vascular markings. No focal infiltrates are seen. No large pneumothorax or large pleural effusion can be seen. Mediastinum: Mediastinal contours appear normal. Heart size is mildly enlarged. Calcification is se en of the aortic arch. Bones and chest wall: No suspicious bony lesions. Overlying soft tissues appear unremarkable. IMPRESSION: Mild cardiomegaly. Low lung volumes. Note: No significant discrepancy from the preliminary report. Reviewed by: Faisal Pagan MD on 02/19/2024 8:50 AM [facility] Approved by: Faisal Pagan MD on 02/19/2024 8:50 AM [facility] Station ID: [id number]
[2024-02-19 10:15] LABS: ESTIMATED AVERAGE GLUCOSE 123 mg/dL (70-100); HEMOGLOBIN A1c% 5.9 % (4.27-6.07)
--- NOTE | 2024-02-19 10:41 | PHARMACY PROGRESS NOTE ---
Best Possible Medication History Admit Date and Time: 02/19/24 [id number] Home Medications Medication Instructions Recorded Confirmed Type levothyroxine 88 mcg tablet 88 mcg PO 0200 09/17/16 02/19/24 History simvastatin 40 mg tablet 40 mg PO QPM 09/17/16 02/19/24 History amlodipine 5 mg tablet 5 mg PO QPM 02/19/24 02/19/24 History latanoprost 0.005 % eye drops 1 drp ophthalmic (eye) QPM 02/19/24 02/19/24 History losartan 50 mg tablet 100 mg PO BID 02/19/24 02/19/24 History metoprolol succinate 50 mg 100 mg PO QPM 02/19/24 02/19/24 History tablet,extended release 24 hr torsemide 5 mg tablet 5 mg PO DAILY 02/19/24 02/19/24 History Processed by: Pharmacy Medications reviewed in ED?: No Medication History completed: Yes Patient Interview: Completed Secondary Source(s): Prescription bottles, Spouse/Significant other, Pharmacy records and Insurance records [facility] Statement: As the person ultimately responsible for medication therapy, providers are able to order a medication from an existing home medication list in [facility] via the "Reconcile Routine" prior to Confirmation of that medication by product support technician. Such practice is discouraged except when the physician, in their clinical judgment, deems that a medical need exists for a medication without regard to previous use.
[2024-02-19] MEDS: SODIUM CHLORIDE FLUSH 0.9% 10 ML SYRINGE IVP SCH (11:47)
[2024-02-19] MEDS: LACTOBACILLUS RHAMNOSUS GG CAPSULE PO SCH (12:28)
[2024-02-19] MEDS: NITROFURANTOIN MACRO 100 MG CAPSULE PO SCH (12:28)
[2024-02-19] MEDS: ACETAMINOPHEN 325 MG TABLET PO PRN (18:50)
[2024-02-19] MEDS: ATORVASTATIN 40 MG TABLET PO SCH (21:35)
[2024-02-20 05:40] LABS: HCT - HEMATOCRIT 41.6 % (37.0-47.0); HGB - HEMOGLOBIN 13.4 g/dL (12.0-16.0); MEAN CORPUSCULAR HEMOGLOBIN 30.7 pg (27.0-31.0); MEAN CORPUSCULAR HGB CONC 32.2 g/dL (32.0-36.0); MEAN CORPUSCULAR VOLUME 95.2 fL (81.0-99.0); MEAN PLATELET VOLUME 9.4 fL (7.9-10.8); RED BLOOD COUNT 4.37 10^6/uL (4.20-5.40); RED CELL DISTRIBUTION WIDTH 13.2 % (12.0-15.0); WHITE BLOOD COUNT 13.5 x10^3/uL (4.8-10.8)
[2024-02-20 05:53] LABS: CALCIUM 9.4 mg/dL (8.5-10.3); CREATININE 0.8 mg/dL (0.6-1.3); POTASSIUM 3.8 mmol/L (3.5-4.5)
[2024-02-20 06:30] VITALS: O2SAT 94
--- NOTE | 2024-02-20 08:08 | Discharge Summary ---
"Discharge Summary Admit Date: 02/19/24 Discharge Date: 02/20/24 Discharging Provider: Dr. Kendra Zuleta Primary Care Provider: Dr. Paez Code Status: Attempt Resuscitation DIAGNOSES Admission Diagnoses: Expressive aphasia Urinary tract infection Hypothyroid Hypertension Discharge Diagnoses with Status of Each Condition: Expressive aphasiaresolving. MRI negative, CT head, CTA without large vessel occlusion as well. No database technician in house over the weekend, advised extensively that she will need an echo done in the outpatient setting. Prescription provided, and radiology department spoken with, can make scheduled appointment through home health scheduler. This was relayed to the patient. She was also told she could call her refrigeration installer and make an appointment for appointment echo that way. Will discharge on high intensity statin, aspirin 81 mg, as well as Plavix for 21 days. Follow-up with neurology in the outpatient setting. Urinary tract infectioncontinue Macrobid for 4 more days. Hypothyroidismcontinue home Synthroid. Hypertensioncontinue home Lasix and metoprolol on discharge. HPI History of Present Illness: Patient is a 83-year-old female with a history of hypothyroidism, hypertension who presents for difficulty speaking, and difficulty finding balance. Around 3 AM today, patient woke up and was making some hot cocoa in the kitchen. She then noticed that she was having difficulty getting out words. She also noticed that her balance was off. She was having difficulty picking up her cup, and putting in the microwave. She woke up her who called 911 immediately. On admission, around 4:20 AM, she arrived to the ED. Code stroke was activated. Last known normal was yesterday evening around 9 PM. At 4:20 AM, CTA was refused as patient has a allergy to contrast. However, CT scan without contrast was done which was negative for any bleed or large stroke. Patient was not a candidate for tPA as last known normal was more than 4.5 hours from presentation. At around 5:10 AM, telestroke neurologist was consulted. She recommended against tPA given low NIHSS, improving symptoms, age greater than 80 and unclear time of onset. CTA was also done, which showed no elida occlusion per the neurologist. Plan was for admission for MRI. We do not have echo at this time, so she will require that in the outpatient setting. She is no history of any previous strokes, MIs. She does see a refrigeration installer, but was told that she has no arrhythmias or heart failure. At this time, she denies any other weaknesses or changes in sensation. She has no facial droop, no difficulty with her vision. She is still having some difficulty with her expression of words. She is mixing up words i.e. kitchen and kitten. She does feel like it is improving. CONSULTS | PROCEDURES Consultations: Telehealth neurology Procedures: CT head, CTA, MRI brain HOSPITAL COURSE Hospital Course: Patient is a 83-year-old female with a history of hypertension who presented with expressive aphasia. She was out of the window for tPA. CT head and CTA were initially done which showed no hemorrhage, stroke, or large vessel occlusion. MRI brain also showed no strokes. Her symptoms began to resolve during her stay. She was tried on aspirin, as well as Plavix, which she will continue for 21 days. She was also started on a high intensity statin. She was found to have a UTI and was symptomatic with urinary frequency; she will complete a course of Macrobid as well. There is no echo in house over the weekend, and she was advised to get an echo done in the outpatient setting. Prescription was provided. She may also be reaching out to her refrigeration installer in case this occurs faster that way. Overall, she felt improved, and was advised to follow-up with her primary care physician, and neurologist, as well as a refrigeration installer for echo completion. She demonstrated understanding, and as such was discharged home. ALLERGIES Allergies Allergy/AdvReac Type Severity Reaction Status Date / Time iodine Allergy Unknown Verified 09/17/16 20:02 MEDICATIONS Ambulatory Orders Medication Instructions Recorded Confirmed levothyroxine 88 mcg tablet 88 mcg PO 0200 09/17/16 02/19/24 amlodipine 5 mg tablet 5 mg PO QPM 02/19/24 02/19/24 latanoprost 0.005 % eye drops 1 drp ophthalmic (eye) QPM 02/19/24 02/19/24 losartan 50 mg tablet 100 mg PO BID 02/19/24 02/19/24 metoprolol succinate 50 mg 100 mg PO QPM 02/19/24 02/19/24 tablet,extended release 24 hr torsemide 5 mg tablet 5 mg PO DAILY 02/19/24 02/19/24 Lactobacillus rhamnosus GG 10 1 cap PO DAILY #7 caps 02/20/24 billion cell capsule (Culturelle) aspirin 81 mg chewable tablet 81 mg PO DAILY #30 tabs 02/20/24 atorvastatin 40 mg tablet 40 mg PO QPM #30 tabs 02/20/24 clopidogrel 75 mg tablet 75 mg PO DAILY #19 tabs 02/20/24 nitrofurantoin 100 mg PO BID 4 days #8 caps 02/20/24 monohydrate/macrocrystals 100 mg capsule PHYSICAL EXAM AT DISCHARGE General Appearance: positive No acute distress; negative Anxious Eyes Bilateral: positive Normal inspection, PERRL and EOMI ENT: positive ENT inspection nml, Pharynx nml and No signs of dehydration Neck: positive Nml inspection, Thyroid nml and No JVD Respiratory: positive Chest non-tender, No respiratory distress and Breath sounds nml; negative Wheezes, Rales or Rhonchi Cardiovascular: positive Regular rate & rhythm, No murmur and No gallop; negative Systolic murmur, Diastolic murmur, Gallop/S3 or Friction rub Peripheral Pulses: positive 2+ Abdomen: positive Non-tender, No organomegaly, Nml bowel sounds and No distention; negative Tenderness, Guarding, Rebound, Hepatomegaly, Splenomegaly or Mass Rectal: positive Non-tender; negative Tenderness, Mass, Nodule or Hemorrhoid Back: positive Nml inspection; negative CVA tenderness (R) or CVA tenderness (L) Skin: positive Color nml, No rash and Warm; negative Dry, Cyanosis or Diaphoresis Extremities: positive Non-tender, Full ROM, Nml appearance and No pedal edema Neurologic/Psychiatric: positive Oriented x3, CN's nml (2-12), Motor nml, Sensation nml and Mood/affect nml; negative Weakness, Sensory loss, Facial droop or Slurred/abnml speech LABS 02/20/24 05:27 02/20/24 05:27 DIAGNOSTIC IMAGING Diagnostic Imaging Results: Final report reviewed QUALITY (Female Hip Fx Only) Was patient sent home on osteoporosis medication?: No FOLLOW UP Follow Up: Patient advised extensively to follow-up with her primary care physician as well as a neurologist in the outpatient setting. Was also advised to follow-up with cardiology to schedule an ECHO if she cannot get it done here. TIME SPENT Time Spent in Discharge (Minutes): 35 Discharge Plan Discharge Patient Disposition: Home, Self Care Condition: Stable Prescriptions: New aspirin 81 mg Tablet,Chewable 81 mg PO DAILY Qty: 30 0RF atorvastatin 40 mg Tablet 40 mg PO QPM Qty: 30 0RF clopidogrel 75 mg Tablet 75 mg PO DAILY Qty: 19 0RF Culturelle 10 billion cell Capsule 1 cap PO DAILY Qty: 7 0RF nitrofurantoin monohyd/m-cryst 100 mg Capsule 100 mg PO BID 4 Days Qty: 8 0RF Continued levothyroxine 88 MCG tablet 88 mcg PO 0200 latanoprost 0.005 % drops 1 drp ophthalmic (eye) QPM Rx Instructions: 1 DROP IN LEFT EYE EVERY EVENING amlodipine 5 mg tablet 5 mg PO QPM torsemide 5 mg tablet 5 mg PO DAILY metoprolol succinate 50 mg tablet extended release 24 hr 100 mg PO QPM losartan 50 mg tablet 100 mg PO BID Discontinued simvastatin 40 MG tablet 40 mg PO QPM Diet: Regular Health Concerns: You came in initially because you are having some difficulty with your words and your balance. We were worried about a stroke. CT head, CTA of your neck vessels, as well as an MRI of the brain was done which showed no acute stroke. You may have had what is called a TIA, or transient ischemic attack. While you were here, we monitored you for any heart arrhythmias, and you did not have any. Your symptoms continued to get better. We talked about how you still need to get an ultrasound of your heart, an ECHO, to complete your stroke workup, in the outpatient setting. I provided you with a paper prescription for this ECHO so you can schedule that here. Alternatively, you can also schedule it with your refrigeration installer. We talked about how it is important to follow-up with your primary care physician, who will give you a referral to a neurologist, a brain doctor who can continue to follow you. We talked about how you also had a urinary tract infection, and have sent 4 more days of pills to your pharmacist, as well as probiotics so you do not develop diarrhea like you usually do with antibiotics. Additionally, we started you on new medications called aspirin and Plavix. Plavix, you will be continuing for a total of 21 days. The aspirin, you should continue indefinitely, in conversation with your neurologist and primary care physician. We are glad you are feeling better, thank you for letting us take care of you. Print Language: Japanese Stand Alone Forms: PCP List Follow-up Care: ECHO [Other] (Please call and let them know you have a paper script from your hospital stay for an ECHO from Dr. Kendra Zuleta; thank you.) [facility] [Outside] Kacey Hdz, [Physician No Access] - Verna Brennan ARNP [Primary Care Provider] -"
[2024-02-20] MEDS: ASPIRIN CHEW 81 MG TABLET PO SCH (09:05)
[2024-02-20] MEDS: CLOPIDOGREL 75 MG TABLET PO SCH (09:05)
== END 2024-02-20 10:41 | disposition home or self-care (01) ==
LOC: ED 04:08 → MS2 04:08
PROVIDERS: ADMIT Internal Medicine; ATTEND Internal Medicine